=== PATIENT | female | born 1945 | race Hispanic/Latino ===

== ENCOUNTER → 2021-09-27 | Outpatient (CLI) | payer OTHER, MEDICARE ==
[~2021-09-27] MED LIST: ASPI-1012 PO; DULOXETINE PO; GABA600T10 PO; HYDR-2132 PO; HYDR-4419 PO; LOSA1TAB54 PO; PANT40TA PO; ROPI1TAB38 PO; SIMV40TA59 PO; SUCR1TAB2 PO; SUCR1TAB28 PO; TOBR5DRO44 OU; TOPI100T37 PO; TOPI50TA24 PO; TRAV2.5D OU; donepezil PO
== END | disposition home or self-care (01) ==
LOC: RAH 13:49
PROVIDERS: ATTEND Internal Medicine
DX: I73.9 Peripheral vascular disease, unspecified (principal)
CPT/HCPCS: 93925